=== PATIENT | male | born 1955 | race Two or more races ===

== ENCOUNTER 2025-09-07 16:03 | Inpatient (IN) | payer SELFPAY ==
[~2025-09-07] VITALS: Ht 167.6 cm; Wt 77.4 kg
--- NOTE | 2025-09-07 17:22 | ED.PDOC ---
General HPI Comments 70 y/o M, presents to the ED for CC of testicular pain. Patient states, he has been experiencing right-sided scrotal pain with associated new onset incontinence x1day. Patient reports, to have further associated symptoms of fever, chills, and dysuria. Patient denies experiencing previous symptoms in past. Patient denies hematuria, penile discharge, or back pain. No other symptoms or modifying factors are present at this time. Chief Complaint: Testicle Pain Time Seen by MD: 17:00 Reviewed notes: Nurses Notes, Medications, Allergies Allergies: Coded Allergies: NO KNOWN ALLERGIES (Unverified , 09/07/25) Information Source: Patient Mode of Arrival: Ambulatory Severity: Moderate Timing: Days Duration: Since onset Prehospital treatment: None Onset: Spontaneous Symptoms: Dysuria History of: None Location male: R Scrotum Penile discharge: None Modifying factors: None associated signs and symptoms: Fever, Dysuria Past Medical History PAST MEDICAL HISTORY: Denies Surgical History: Denies all surgeries Family History Family History: Unknown Social History Smoker: Non-Smoker Alcohol: Denies ETOH Use Drugs: Denies Drug Use Lives In: Home Constitutional: reports: chills, fever; denies: diaphoresis, fatigue, malaise, sweats, weakness, others EENTM: denies: blurred vision, double vision, ear bleeding, ear discharge, ear drainage, ear pain, ear ringing, eye pain, eye redness, hearing loss, mouth pain, mouth swelling, nasal discharge, nose bleeding, nose congestion, nose p ain, photophobia, tearing, throat pain, throat swelling, voice changes, others Respiratory: denies: cough, hemoptysis, orthopnea, SOB at rest, shortness of breath, SOB with excertion, stridor, wheezing, others Cardiovascular: denies: chest pain, dizzy spells, diaphoresis, Dyspnea on exertion, edema, irregular heart beat, left arm pain, lightheadedness, palpitations, PND, syncope, others Gastrointestinal: denies: abdomen distended, abdominal pain, blood streaked bowels, constipated, diarrhea, dysphagia, difficulty swallowing, hematemesis, melena, nausea, poor appetite, poor fluid intake, rectal bleeding, rectal pain, vomiting, others Genitourinary: reports: burning, incontinence, testicle pain; denies: dysuria, flank pain, frequency, hematuria, penile discharge, penile sore, pain, testicle swelling, urgency, others Neurological: denies: dizziness, fainting, headache, left sided numbness, left sided weakness, numbness, paresthesia, pre-existing deficit, right sided n umbness, right sided weakness, seizure, speech problems, tingling, tremors, weakness, others Musculoskeletal: denies: back pain, gout, joint pain, joint swelling, muscle pain, muscle stiffness, neck pain, others Integumetry: denies: bruises, change in color, change in hair/nails, dryness, laceration, lesions, lumps, rash, wounds, others Allergic/Immunocompromised: denies: Difficulty Healing, Frequent Infections, Hives, Itching, others Hematologic/Lymphatic: denies: anemia, blood clots, easy bleeding, easy bruising, swollen glands, others Endocrine: denies: excessive hunger, excessive sweating, excessive thirst, excessive urination, flushing, intolerance to cold, intolerance to heat, unexplained weight gain, unexplained weight loss, others Psychiatric: denies: anxiety, bipolar disorder, depression, hopeless, panic disorder, schizophrenia, sleepless, suicidal, others All Other Systems: Reviewed and Negative Physical Exam General Appearance: No Apparent Distress, Normal HEENT: Normal ENT Inspection, Pharynx Normal Neck: Full Range of Motion, Non-Tender, Normal, Normal Inspection Respiratory: Chest Non-Tender, Lungs Clear, No Accessory Muscle Use, No Respiratory Distress, Normal Breath Sounds Cardiovascular: No Edema, No Murmur, No Gallop, Normal Peripheral Pulses, Regular Rate/Rhythm Breast Exam: Deferred Gastrointestinal: No Organomegaly, Non Tender, No Pulsatile Mass, Normal Bowel Sounds, Soft Genitalia: Deferred Pelvic: Deferred Rectal: Deferred Extremities: No calf tenderness, Normal capillary refill, Normal inspection, Normal range of motion, Non-tender, No pedal edema Musculoskeletal : Apperance: Normal Neurologic: Alert, carpenter general II-XII nml as Tested, No Motor Deficits, Normal Affect, Normal Mood, No Sensory Deficits Cerebellar Function: Normal Reflexes: Normal Skin: Dry, Normal Color, Warm Lymphatic: No Adenopathy Was a procedure done? Was a procedure done?: No Differential Diagnosis Kidney stone (Female): N/A Urinary Problem (Male): Urethritis, Urinary Retention, Urolithiasis, UTI X-Ray, Labs, Meds, VS Vital Signs Date Time Temp Pulse Resp B/P (MAP) Pulse Ox O2 Delivery O2 Flow Rate FiO2 09/07/25 16:05 99.2 100 18 117/80 99 99.2 Lab Test 09/07/25 17:50 09/07/25 17:47 Range/Units Urine Color Light-yellow Yellow Urine Clarity Clear Clear Urine pH 5.5 5.0-9.0 Urine Specific [place] 1.011 1.001-1.035 Urine Protein Negative Negative Urine Ketones Negative Negative Urine Blood Trace H Negative /uL Urine Nitrite Negative Negative Urine Bilirubin Negative Negative Urine Urobilinogen Normal Negative mg/dL Urine Leukocyte Esterase 1+ Negative /uL Urine RBC 2 0 - 3 /hpf Urine Microscopic WBC 6 H 0-3 /HPF Urine Squamous Epithelial Cells None seen <5 /hpf Urine Bacteria Few H None Seen /hpf Urine Glucose Normal Normal mg/dL White Blood Count 17.9 H 4.4-10.8 10^3/uL Red Blood Count 5.35 4.5-5.90 10^6/uL Hemoglobin 16.5 13.5-17.5 g/dL Hematocrit 48.0 41.0-53.0 % Mean Corpuscular Volume 89.7 80.0-100.0 fL Mean Corpuscular Hemoglobin 30.9 28.0-32.0 pg Mean Corpuscular Hemoglobin Concent 34.5 32.0-36.0 g/dL Red Cell Distribution Width 12.8 11.8-14.3 % Platelet Count 228 140-450 10^3/uL Mean Platelet Volume 6.9 6.9-10.8 fL Neutrophils (%) (Auto) 84.7 H 37.0-80.0 % Lymphocytes (%) (Auto) 9.3 L 10.0-50.0 % Monocytes (%) (Auto) 5.7 0.0-12.0 % Eosinophils (%) (Auto) 0.2 0.0-7.0 % Basophils (%) (Auto) 0.1 0.0-2.0 % Neutrophils # (Auto) 15.1 H 1.6-8.6 10 ^3/uL Lymphocytes # (Auto) 1.7 0.4-5.4 10 ^3/uL Monocytes # (Auto) 1.0 0-1.3 10 ^3/uL Eosinophils # (Auto) 0 0-0.8 10 ^3/uL Basophils # (Auto) 0 0-0.2 10 ^3/uL Nucleated Red Blood Cells 0.1 % Sodium Level 137 136-145 mmol/L Potassium Level 3.9 3.5-5.1 mmol/L Chloride Level 97 L 98-107 mmol/L Carbon Dioxide Level 28 20-31 mmol/L Anion Gap 12 5-15 Blood Urea Nitrogen 11 9-23 mg/dL Creatinine 1.03 0.700-1.30 mg/dL Glomerular Filtration Rate Calc 77 >90 mL/min BUN/Creatinine Ratio 10.7 10.0-20.0 Serum Glucose 100 74-106 mg/dL Lactic Acid Level 1.5 0.4-2.0 mmol/L Calcium Level 10.0 8.7-10.4 mg/dL Time of 1ST Reevaluation: 17:30 Reevaluation 1ST: Unchanged Patient Education/Counseling: Diagnosis, Treatment Family Education/Counseling: Diagnosis, Treatment SEPSIS Sepsis Screen Date sepsis recognized/suspect: Sep 07, 2025 Time Sepsis recognized/suspect: 160 Recent Procedure: No Respiratory Rate >20: No Heart Rate >90: Yes Temp<36 C (96.8 F) or >38.3 C: No SBP <90 or MAP <65 mmHG: No New Acute Mental Status Change: No Is the patient on CPAP, BIPAP,: No Physician Orders Blood Culture (09/07/25 17:35) Urine Bacterial Culture (09/07/25 17:35) Lactated Ringer's (09/07/25 19:15) Vancomycin Once Stat (09/07/25 19:15) Cefepime 2 Gm Once Stat (09/07/25 19:15) Notify Md If Map <65 Or Bp<90 (09/07/25 19:05) If Map<65 Start Vasopressor (09/07/25 19:05) Sepsis Reassesment After Fluid (09/07/25 20:05) Vital Signs Date Time Temp Pulse Resp B/P (MAP) Pulse Ox O2 Delivery O2 Flow Rate FiO2 09/07/25 16:05 99.2 100 18 117/80 99 99.2 Laboratory Tests Test 09/07/25 17:47 Lactic Acid Level 1.5 mmol/L (0.4-2.0) White Blood Count 17.9 10^3/uL (4.4-10.8) H Departure 1 Departure Time of Disposition: 19:07 (Patient with a complicated UTI concerning for possible sepsis. We will admit patient for further workup and expert consultation) Impression: Primary Impression: Suspected sepsis Additional Impression: Complicated UTI (urinary tract infection) Disposition: 09 ADMITTED INPATIENT Admit to: Tele Condition: Guarded Critical Care Note Critical Care Time?: No Stability Stability form required: No Heart Score Heart Score: Heart Score Response (Comments) Value History N/A 0 EKG N/A 0 Age N/A 0 Risk Factors N/A 0 Troponin N/A 0 Total 0 I personally scribed for ETHAN TRAVIS MD ([email or web address]) on 09/07/25 at 17:22. Electronically submitted by Jessica Amado ([email or web address]). ETHAN TRAVIS MD Sep 07, 2025 17:22
[2025-09-07 18:12] LABS: Hematocrit 48.0 % (41.0-53.0); Hemoglobin 16.5 g/dL (13.5-17.5); Mean Corpuscular Hemoglobin 30.9 pg (28.0-32.0); Mean Corpuscular Volume 89.7 fL (80.0-100.0); Nucleated Red Blood Cells % 0.1 %
[2025-09-07 18:21] LABS: Potassium 3.9 mmol/L (3.5-5.1); Sodium 137 mmol/L (136-145)
[2025-09-07 18:22] LABS: Anion Gap 12 (5-15); Calcium 10.0 mg/dL (8.7-10.4); Carbon Dioxide 28 mmol/L (20-31)
[2025-09-07 18:23] LABS: Urine Protein, UAD Negative (Negative)
[2025-09-07 18:26] LABS: Chloride 97 mmol/L (98-107)
[2025-09-07 18:27] LABS: BUN/Creatinine Ratio 10.7 (10.0-20.0); Blood Urea Nitrogen 11 mg/dL (9-23); Glucose 100 mg/dL (74-106)
[2025-09-07] MEDS ORDERED: CEFEPIME 1GM/50ML 50 ML IV ONE (19:15)
[2025-09-07] MEDS: CEFEPIME 1GM/50ML 50 ML IV ONE (21:13)
[2025-09-07] MEDS: LACTATED RINGER'S 1,900 ML IV ONE (21:21)
[2025-09-07] MEDS: VANCOMYCIN 1GM/250ML KIT 250 ML IV ONE (22:14)
[2025-09-07] MEDS: ACETAMINOPHEN 325 MG TAB PO ONE (22:14)
--- NOTE | 2025-09-08 03:29 | DVHHP2 ---
History of Present Illness Reason for Visit: Testicular pain History of Present Illness 70-year-old male presents for evaluation of testicular pain. Patient presents with a one day history of right testicular tenderness with associated dysuria, urinary incontinence and intermittent chills. Denies abdominal pain, nausea or vomiting. Denies penile discharge. No other acute complaints. Past Medical History Denies Past Surgical History Denies Family History Noncontributory Smoke: No ALCOHOL: none Drugs: None Lives: with Family Review of Systems Review of Systems Review of systems are currently negative otherwise addressed in HPI. Allergies: Coded Allergies: NO KNOWN ALLERGIES (Unverified , 09/07/25) Exam Vital Signs Vital Signs Date Time Temp Pulse Resp B/P (MAP) Pulse Ox O2 Delivery O2 Flow Rate FiO2 09/07/25 23:25 98.5 84 16 105/63 (77) 95 98.5 09/07/25 21:45 Room Air* 0 21 Exam Gen: 70-year-old male in mild distress Skin: Warm, dry, normal color and texture, no rash. HEENT: Normocephalic atraumatic, mucous membranes moist and pink. Neck: Cervical and supraclavicular nodes normal without enlargement, trachea is midline, thyroid gland is normal without masses. Pulmonary: Clear to auscultation and percussion bilaterally. Cardiac: Regular rate and rhythm. No murmur : Right testicular tenderness Abdomen: Soft, nontender, nondistended, bowel sounds present all 4 quadrants, no guarding, no rigidity, no organomegaly. Extremities: No cyanosis, clubbing, no edema Neuro: Cranial nerves II through XII grossly intact, normal affect and speech, no focal motor deficits. Labs/Xrays Labs Test 09/07/25 17:50 09/07/25 17:47 Range/Units Urine Color Light-yellow Yellow Urine Clarity Clear Clear Urine pH 5.5 5.0-9.0 Urine Specific [place] 1.011 1.001-1.035 Urine Protein Negative Negative Urine Ketones Negative Negative Urine Blood Trace H Negative /uL Urine Nitrite Negative Negative Urine Bilirubin Negative Negative Urine Urobilinogen Normal Negative mg/dL Urine Leukocyte Esterase 1+ Negative /uL Urine RBC 2 0 - 3 /hpf Urine Microscopic WBC 6 H 0-3 /HPF Urine Squamous Epithelial Cells None seen <5 /hpf Urine Bacteria Few H None Seen /hpf Urine Glucose Normal Normal mg/dL White Blood Count 17.9 H 4.4-10.8 10^3/uL Red Blood Count 5.35 4.5-5.90 10^6/uL Hemoglobin 16.5 13.5-17.5 g/dL Hematocrit 48.0 41.0-53.0 % Mean Corpuscular Volume 89.7 80.0-100.0 fL Mean Corpuscular Hemoglobin 30.9 28.0-32.0 pg Mean Corpuscular Hemoglobin Concent 34.5 32.0-36.0 g/dL Red Cell Distribution Width 12.8 11.8-14.3 % Platelet Count 228 140-450 10^3/uL Mean Platelet Volume 6.9 6.9-10.8 fL Neutrophils (%) (Auto) 84.7 H 37.0-80.0 % Lymphocytes (%) (Auto) 9.3 L 10.0-50.0 % Monocytes (%) (Auto) 5.7 0.0-12.0 % Eosinophils (%) (Auto) 0.2 0.0-7.0 % Basophils (%) (Auto) 0.1 0.0-2.0 % Neutrophils # (Auto) 15.1 H 1.6-8.6 10 ^3/uL Lymphocytes # (Auto) 1.7 0.4-5.4 10 ^3/uL Monocytes # (Auto) 1.0 0-1.3 10 ^3/uL Eosinophils # (Auto) 0 0-0.8 10 ^3/uL Basophils # (Auto) 0 0-0.2 10 ^3/uL Nucleated Red Blood Cells 0.1 % Sodium Level 137 136-145 mmol/L Potassium Level 3.9 3.5-5.1 mmol/L Chloride Level 97 L 98-107 mmol/L Carbon Dioxide Level 28 20-31 mmol/L Anion Gap 12 5-15 Blood Urea Nitrogen 11 9-23 mg/dL Creatinine 1.03 0.700-1.30 mg/dL Glomerular Filtration Rate Calc 77 >90 mL/min BUN/Creatinine Ratio 10.7 10.0-20.0 Serum Glucose 100 74-106 mg/dL Lactic Acid Level 1.5 0.4-2.0 mmol/L Calcium Level 10.0 8.7-10.4 mg/dL SEPSIS Sepsis Screen Date sepsis recognized/suspect: Sep 07, 2025 Time Sepsis recognized/suspect: 2144 Recent Procedure: No On Antibiotic Therapy: Yes Respiratory Rate >20: No Heart Rate >90: Yes Temp<36 C (96.8 F) or >38.3 C: Yes SBP <90 or MAP <65 mmHG: No New Acute Mental Status Change: No Is the patient on CPAP, BIPAP,: No Physician Orders Ceftriaxone Ivpb Rocephin (09/08/25 09:00) Urine Bacterial Culture (09/08/25 03:24) Testicular Ultrasound (09/08/25 03:24) Ketorolac Injection (Toradol Injection) (09/08/25 03:30) Basic Metabolic Panel (09/08/25 03:24) Complete Blood Count (09/08/25 03:24) Regular Diet (09/08/25 Breakfast) Admit (09/08/25 03:24) Hydrocodone-Acet 5/325mg Tab ([place] 5/32 (09/08/25 03:30) Ondansetron Hcl (Zofran) (09/08/25 03:30) Condition: Stable (09/08/25 03:24) Acetaminophen Tablet (Tylenol Tablet) (09/08/25 03:30) Bedrest With Bathroom Privileg (09/08/25 03:24) Vital Signs Date Time Temp Pulse Resp B/P (MAP) Pulse Ox O2 Delivery O2 Flow Rate FiO2 09/07/25 23:25 98.5 84 16 105/63 (77) 95 98.5 09/07/25 22:56 98.4 09/07/25 22:55 98.4 107 18 137/80 (99) 96 98.4 09/07/25 22:14 101.7 101.7 09/07/25 22:14 101.7 09/07/25 21:45 18 96 Room Air* 0 21 09/07/25 21:45 101.6 98 18 141/89 (106) 96 101.6 09/07/25 19:50 94 18 158/91 (113) 95 Laboratory Tests Test 09/07/25 17:47 Lactic Acid Level 1.5 mmol/L (0.4-2.0) White Blood Count 17.9 10^3/uL (4.4-10.8) H Medications Medications Dose Ordered Sig/Ame Route Start Time Stop Time Status Last Admin Dose Admin Acetaminophen 650 mg ONCE ONCE PO 09/07/25 21:45 09/07/25 21:46 DC 09/07/25 22:14 650 MG Cefepime HCl 50 ml @ 50 mls/hr ONCE ONCE IV 09/07/25 21:00 09/07/25 21:59 DC 09/07/25 21:13 50 MLS/HR Lactated Ringer's 1,900 ml @ 1,900 mls/hr ONCE ONCE IV 09/07/25 19:15 09/07/25 20:14 DC 09/07/25 21:21 1,900 MLS/HR Vancomycin HCl 250 ml @ 250 mls/hr ONCE ONCE IV 09/07/25 19:15 09/07/25 20:14 DC 09/07/25 22:14 250 MLS/HR Assessment/Plan Assessment/Plan Assessment Urinary tract infection Right testicular tenderness Leukocytosis Plan Admit the patient to [facility] to the hospitalist Alysha Pain management Testicular ultrasound pending Continue treatment per orders. Plan discussed with: Patient My Orders Orders - URBANO GORDILLO Procedure Category Date Status Time Ceftriaxone Ivpb PHA 09/08/25 Verified Rocephin 09:00 Urine Bacterial [place] 09/08/25 Verified Culture 03:24 Testicular Ultrasound US 09/08/25 Verified 03:24 Ketorolac Injection PHA 09/08/25 Verified (Toradol Injection) 03:30 Basic Metabolic Panel LAB 09/08/25 Verified 03:24 Complete Blood Count LAB 09/08/25 Verified 03:24 Regular Diet DIET 09/08/25 Verified Breakfast Admit ADMIT 09/08/25 Verified 03:24 Hydrocodone-Acet PHA 09/08/25 Verified 5/325mg Tab ([place] 03:30 Ondansetron Hcl PHA 09/08/25 Verified (Zofran) 03:30 Condition: Stable MATTHEW 09/08/25 Verified 03:24 Acetaminophen Tablet PHA 09/08/25 Verified (Tylenol Tablet) 03:30 Bedrest With Bathroom MATTHEW 09/08/25 Verified Privileg 03:24 Date of Service: Sep 08, 2025 Billing Provider: URBANO GORDILLO Common Visit Codes: [id number] INP/OBS CARE (MOD) URBANO GORDILLO Sep 08, 2025 03:29
[2025-09-08] MEDS ORDERED: ONDANSETRON HCL 4 MG/2 ML VIAL IV PRN (03:30)
[2025-09-08 03:34] VITALS: O2SAT 98
[2025-09-08 03:53] LABS: Hematocrit 41.0 % (41.0-53.0); Hemoglobin 14.1 g/dL (13.5-17.5); Mean Corpuscular Hemoglobin 30.8 pg (28.0-32.0); Mean Corpuscular Volume 89.7 fL (80.0-100.0); Nucleated Red Blood Cells % 0.0 %
[2025-09-08 03:56] LABS: Chloride 100 mmol/L (98-107); Potassium 3.5 mmol/L (3.5-5.1); Sodium 137 mmol/L (136-145)
[2025-09-08 03:57] LABS: Anion Gap 9 (5-15); Calcium 9.0 mg/dL (8.7-10.4); Carbon Dioxide 28 mmol/L (20-31)
[2025-09-08 04:02] LABS: BUN/Creatinine Ratio 18.2 (10.0-20.0); Blood Urea Nitrogen 18 mg/dL (9-23); Glucose 107 mg/dL (74-106)
[2025-09-08] MEDS: KETOROLAC TROMETH 30 MG/ML 1ML VIAL IV ONE (04:23)
[2025-09-08 08:06] VITALS: O2SAT 0
--- NOTE | 2025-09-08 09:21 | DVH ---
US TESTICULAR ULTRASOUND INDICATION: right testicular pain COMPARISON: None TECHNIQUE: High resolution scrotal ultrasound performed with a linear transducer. Grayscale, color flow, and duplex Doppler ultrasound imaging with wave form analysis was performed.Real time albrecht scale, color flow and pulsed wave Doppler performed. FINDINGS: The right testis is 2.9 cm. The left testis is 4.6 cm. Preserved venous waveforms. Suboptimal arterial waveforms likely technical. Hypoechoic area in the right inferior testicle with possible calcification measuring 1.8 x 1.2 cm. Heterogeneous appearance of the left testicle and right epididymis. Small bilateral hydroceles, [id number]. IMPRESSION: Hypoechoic area in the right inferior testicle measuring 1.8 x 1.2 cm with possible calcification. This is nonspecific but underlying mass is possible. Alternatively, this could be from sequela of previous infection / inflammation. No loculated collection is seen. Recommend urology consultation.
[2025-09-08] MEDS: DOXYCYCLINE 100 MG TAB/CAP PO ONE (13:19)
--- NOTE | 2025-09-08 17:10 | DVHPNRES ---
Progress Note Date Seen: Sep 08, 2025 Resident Creating Document: FRITZ HORNER RESIDENT Has the PT tested + for MRSA If YES, has PT been informed?: No Medical Necessity Reason Pt with a Central, PICC or Fol: No Subjective Review of Systems This is a 70-year-old male with past medical history of HTN, GERD came to ER with a complaint of right testicular pain for 2 days which is in nature, intermittent, 8/10 intensity, radiates to the right thigh, no aggravating or relieving factors. Patient having no similar symptoms denies any hematuria. Patient current symptoms associated with dysuria, urinary incontinence and intermittent chills. Patient denies any fever, SOB, chest pain, abdominal pain, any focal weakness. Denies any penile discharge or multiple sexual partners. Past medical history: HTN, GERD Past surgical history: Right-sided hernia repair Family history: Nothing contributory Personal history: Ex-smoker, ETOH occasionally denies illicit drug Allergy: No known allergy PCP: In [place] Objective vital signs Vital Sign Date Time Temp Pulse Resp B/P (MAP) Pulse Ox O2 Delivery O2 Flow Rate FiO2 09/08/25 12:00 86 18 138/80 (99) 96 09/08/25 08:06 Room Air* 0 21 09/08/25 08:00 98.7 98.7 Total Intake and Output 09/07/25 09/07/25 09/08/25 15:00 23:00 07:00 Intake Total 1950 ml 250 ml Balance 1950 ml 250 ml medications Current Medications Medications Dose Ordered Sig/Ame Route Start Time Stop Time Status Last Admin Dose Admin Ceftriaxone Sodium 50 ml @ 100 mls/hr DAILY@09 IV 09/08/25 09:00 09/08/25 09:06 100 MLS/HR Acetaminophen/ Hydrocodone Bitart 1 tab Q4HP PRN PO 09/08/25 03:30 Ondansetron HCl 4 mg Q4HP PRN IV 09/08/25 03:30 Acetaminophen 650 mg Q6HP PRN PO 09/08/25 03:30 Doxycycline Monohydrate 100 mg Q12HR PO 09/08/25 22:00 Examination Gen: 70-year-old male in mild distress Skin: Warm, dry, normal color and texture, no rash. HEENT: Normocephalic atraumatic, mucous membranes moist and pink. Neck: Cervical and supraclavicular nodes normal without enlargement, trachea is midline, thyroid gland is normal without masses. Pulmonary: Clear to auscultation and percussion bilaterally. Cardiac: Regular rate and rhythm. No murmur : Right testicular tender on deep palpation, cremasteric reflex present Abdomen: Soft, nontender, nondistended, bowel sounds present all 4 quadrants, no guarding, no rigidity, no organomegaly. Extremities: No cyanosis, clubbing, no edema Neuro: Cranial nerves II through XII grossly intact, normal affect and speech, no focal motor deficits. laboratory and microbiology Laboratory Tests 09/08/25 03:32 Test 09/08/25 03:32 Range/Units Serum Glucose 107 H 74-106 mg/dL Microbiology Date/Time Source Procedure Growth Status 09/07/25 17:50 Voided Urine Urine Culture - Preliminary Resulted Problem List/Assessment/Plan Problem List/Assessment/Plan Right testicular pain due to epididymitis Ruled out right testicular torsion Right Inferior Testicular mass small bilateral hydrocele SIRS not sepsis Leukocytosis Ultrasound testes: Hypoechoic area in the right inferior testicle measuring 1.8 x 1.2 cm with possible calcification. This is nonspecific but underlying mass is possible. Alternatively, this could be from sequela of previous infection / inflammation. Empiric antibiotic ceftriaxone and doxycycline Urine for GC chlamydia Pain management Repeat ultrasound Monitor labs Complicated cystitis UA showed blood trace, leukocyte esterase 1+, WBC 6, bacteria few Empiric antibiotic ceftriaxone Urine for culture and sensitivity Monitor labs Essential hypertension Monitor blood pressure JANE, NCS, low-fat Diet: Regular DVT prophylaxis heparin GI prophylaxis: Pantoprazole Goals of care discussions. More than 29 minute spent with patient. Full code status Discussed with Dr. Montague Plan discussed with: Patient, Other (NURSE) My Orders My Orders Orders - FRITZ HORNER RESIDENT Procedure Category Date Status Time Doxycycline Tablet PHA 09/08/25 In Process (Vibramycin Tablet) 22:00 Chlamydia/Gc LAB 09/08/25 In Process Amplification 11:48 Sepsis reassessment post fluid Is the fluid challenge complet: Yes Date of Reassessment: Sep 07, 2025 Time of Reassessment: 2254 Blood Culture Time: 1806 Time Antibiotics Given: 2112 Systolic BP: 137 Diastolic BP: 80 Blood Pressure Mean: 99 Respiration: 18 Respiratory Effort: Non-Labored Respiratory Pattern: Regular Oxygen Saturation: 96 Pulse Rate: 107 Pulse Location: Radial Pulse Strength: Normal Pulse Assessment Method: Palpation Pulse Rhythm: Regular Capillary Refill: < 3 seconds Heart Sounds: S1 & S2 Breath sounds: Clear Skin Moisture: Dry Skin Tugor: WNL Skin Color: WNL Date of Service: Sep 08, 2025 Billing Provider: TRE MONTAGUE MD Common Visit Codes: [id number] INP/OBS CARE(HIGH) FRITZ HORNER RESIDENT Sep 08, 2025 17:10 TRE MONTAGUE MD Sep 10, 2025 15:08
[2025-09-08] MEDS: HYDROcodone-ACET 5/325MG TAB PO PRN (19:59)
[2025-09-08 20:05] VITALS: PULSE 108; O2SAT 96
[2025-09-08 21:00] VITALS: BP 118/75; PULSE 104; RESP 19; TEMP 97.8; O2SAT 94
[2025-09-08 21:51] VITALS: PULSE 103; RESP 20; O2SAT 95
[2025-09-08] MEDS: DOXYCYCLINE 100 MG TAB/CAP PO SCH (22:43)
[2025-09-08] MEDS: HEPARIN SODIUM (PORCINE) 5000 UNITS/ML 1ML VIAL SC SCH (22:43)
[2025-09-09] VITALS (7 sets, daily range): BP systolic 113–132; BP diastolic 66–87; PULSE 76–101; RESP 17–19; TEMP 37.5; O2SAT 94–98
[2025-09-09 06:06] LABS: Hematocrit 39.3 % (41.0-53.0); Hemoglobin 13.7 g/dL (13.5-17.5); Mean Corpuscular Hemoglobin 31.3 pg (28.0-32.0); Mean Corpuscular Volume 89.8 fL (80.0-100.0); Nucleated Red Blood Cells % 0.1 %
[2025-09-09 06:17] LABS: Alanine Aminotransferase 20 U/L (7-40); Albumin 3.8 g/dL (3.2-4.8); Alkaline Phosphatase 90 U/L (46-116); Anion Gap 11 (5-15); BUN/Creatinine Ratio 14.9 (10.0-20.0); Bilirubin, Total 1.0 mg/dL (0.2-1.0); Blood Urea Nitrogen 15 mg/dL (9-23); Calcium 9.0 mg/dL (8.7-10.4); Carbon Dioxide 26 mmol/L (20-31); Chloride 102 mmol/L (98-107); Glucose 104 mg/dL (74-106); Potassium 3.8 mmol/L (3.5-5.1); Sodium 139 mmol/L (136-145); Total Protein 6.8 g/dL (5.7-8.2)
[2025-09-09] MEDS: ERGOCALCIFEROL 50,000 UNIT(1.25MG) CAP PO SCH (08:53)
[2025-09-09] MEDS: CYANOCOBALAMIN 500 MCG TAB PO SCH (08:53)
[2025-09-09] MEDS: ENOXAPARIN SOD 40 MG/0.4 ML SYRINGE SC SCH (10:00)
[2025-09-09] MEDS: ACETAMINOPHEN 325 MG TAB PO PRN (13:37)
[2025-09-09 16:07] LABS: Chlamydia Trachomatis, NAA Negative (Negative); Neisseria gonorrhoeae, NAA Negative (Negative)
--- NOTE | 2025-09-09 16:22 | DVHPNRES ---
Progress Note Date Seen: Sep 09, 2025 Resident Creating Document: FRITZ HORNER RESIDENT Has the PT tested + for MRSA If YES, has PT been informed?: No Medical Necessity Reason Pt with a Central, PICC or Fol: No Subjective Review of Systems This is a 70-year-old male with past medical history of HTN, GERD came to ER with a complaint of right testicular pain for 2 days which is in nature, intermittent, 8/10 intensity, radiates to the right thigh, no aggravating or relieving factors. Patient having no similar symptoms denies any hematuria. Patient current symptoms associated with dysuria, urinary incontinence and intermittent chills. Patient denies any fever, SOB, chest pain, abdominal pain, any focal weakness. Denies any penile discharge or multiple sexual partners. Past medical history: HTN, GERD Past surgical history: Right-sided hernia repair Family history: Nothing contributory Personal history: Ex-smoker, ETOH occasionally denies illicit drug Allergy: No known allergy PCP: not selected. Objective vital signs Vital Sign Date Time Temp Pulse Resp B/P (MAP) Pulse Ox O2 Delivery O2 Flow Rate FiO2 09/09/25 13:37 99.7 09/09/25 09:00 86 17 132/85 (101) 94 09/09/25 08:00 Room Air* 0 21 Total Intake and Output 09/08/25 09/08/25 09/09/25 15:00 23:00 07:00 Intake Total 50 ml 200 ml Balance 50 ml 200 ml medications Current Medications Medications Dose Ordered Sig/Ame Route Start Time Stop Time Status Last Admin Dose Admin Acetaminophen/ Hydrocodone Bitart 1 tab Q4HP PRN PO 09/08/25 03:30 09/09/25 08:54 1 TAB Ondansetron HCl 4 mg Q4HP PRN IV 09/08/25 03:30 Acetaminophen 650 mg Q6HP PRN PO 09/08/25 03:30 09/09/25 13:37 650 MG Doxycycline Monohydrate 100 mg Q12HR PO 09/08/25 22:00 09/09/25 08:53 100 MG Ergocalciferol 50,000 unit Q7D PO 09/09/25 06:30 09/09/25 08:53 50,000 UNIT Cyanocobalamin 1,000 mcg DAILY PO 09/09/25 10:00 09/09/25 08:53 1,000 MCG Enoxaparin Sodium 40 mg DAILY SC 09/09/25 10:00 Levofloxacin/ Dextrose 150 ml @ 100 mls/hr DAILY IV 09/09/25 10:00 09/09/25 13:37 100 MLS/HR Examination Gen: 70-year-old male in mild distress Skin: Warm, dry, normal color and texture, no rash. HEENT: Normocephalic atraumatic, mucous membranes moist and pink. Neck: Cervical and supraclavicular nodes normal without enlargement, trachea is midline, thyroid gland is normal without masses. Pulmonary: Clear to auscultation and percussion bilaterally. Cardiac: Regular rate and rhythm. No murmur : Right testicular tender on deep palpation, cremasteric reflex present Abdomen: Soft, nontender, nondistended, bowel sounds present all 4 quadrants Extremities: No cyanosis, clubbing, no edema Neuro: Cranial nerves II through XII grossly intact, normal affect and speech, no focal motor deficits. laboratory and microbiology Laboratory Tests 09/09/25 05:20 Test 09/09/25 05:20 Range/Units Serum Glucose 104 74-106 mg/dL Microbiology Date/Time Source Procedure Growth Status 09/07/25 17:52 Blood Blood Culture - Preliminary NO GROWTH AFTER 24 HOURS OF INCUBATION. 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 This is nonspecific but underlying mass is possible. Alternatively, this could be from sequela of previous infection / inflammation. Started antibiotic levofloxacin which is sensitive to E coli after culture and sensitivity Urine for GC chlamydia-negative Pain management Repeat ultrasound Monitor labs Complicated cystitis UA showed blood trace, leukocyte esterase 1+, WBC 6, bacteria few Urine culture showed growth E coli Ceftriaxone switched to levofloxacin Monitor labs Vitamin-D deficiency Vitamin D3 84554 units po Q weekly Essential hypertension Monitor blood pressure JANE, NCS, low-fat Diet: Regular DVT prophylaxis : Lovenox GI prophylaxis: Pantoprazole Goals of care discussions. More than 21 minute spent with patient. Full code status Discussed with Dr. Codey Plan discussed with: Patient, Other (Nurse) My Orders My Orders Orders - FRITZ HORNER Procedure Category Date Status Time Ergocalciferol PHA 09/09/25 In Process (Vitamin D 50,000 06:30 Cyanocobalamin PHA 09/09/25 In Process (Vitamin B-12) 10:00 Consult Care CONS 09/09/25 Transmitted Coordinator Sepsis reassessment post fluid Is the fluid challenge complet: Yes Date of Reassessment: Sep 07, 2025 Time of Reassessment: 2254 Blood Culture Time: 1806 Time Antibiotics Given: 2112 Systolic BP: 137 Diastolic BP: 80 Blood Pressure Mean: 99 Respiration: 18 Respiratory Effort: Non-Labored Respiratory Pattern: Regular Oxygen Saturation: 96 Pulse Rate: 107 Pulse Location: Radial Pulse Strength: Normal Pulse Assessment Method: Palpation Pulse Rhythm: Regular Capillary Refill: < 3 seconds Heart Sounds: S1 & S2 Breath sounds: Clear Skin Moisture: Dry Skin Tugor: WNL Skin Color: WNL FRITZ HORNER RESIDENT Sep 09, 2025 16:22
[2025-09-09] MEDS ORDERED: CYAN100056 PO (16:50)
[2025-09-09] MEDS ORDERED: CIPR500T4 PO (16:50)
[2025-09-09] MEDS ORDERED: ERGO1CAP23 PO (16:50)
--- NOTE | 2025-09-09 16:50 | MEDREC ---
DV ASP Intervention Section I DV ASP Intervention: Deescalate AB based on CS (PLEASE CONSIDER D/C DOXYCYCLINE - C.TRACHOMATIS / N.GONNORRHEA NEGATIVE) YA CORONEL PHARMACIST Sep 09, 2025 16:50
--- NOTE | 2025-09-09 17:16 | DVHDSRES ---
Discharge Summary Date of Admission Resident Creating Document: FRITZ HORNER RESIDENT Sep 08, 2025 at 03:24 Date of Discharge: Sep 09, 2025 Labs/Diagnostic Data: Laboratory Results Test 09/09/25 05:20 09/08/25 12:37 09/07/25 17:50 09/07/25 17:47 White Blood Count 12.1 10^3/uL (4.4-10.8) Red Blood Count 4.37 10^6/uL (4.5-5.90) Hemoglobin 13.7 g/dL (13.5-17.5) Hematocrit 39.3 % (41.0-53.0) Mean Corpuscular Volume 89.8 fL (80.0-100.0) Mean Corpuscular Hemoglobin 31.3 pg (28.0-32.0) Mean Corpuscular Hemoglobin Concent 34.9 g/dL (32.0-36.0) Red Cell Distribution Width 12.9 % (11.8-14.3) Platelet Count 187 10^3/uL (140-450) Mean Platelet Volume 7.0 fL (6.9-10.8) Neutrophils (%) (Auto) 79.7 % (37.0-80.0) Lymphocytes (%) (Auto) 10.4 % (10.0-50.0) Monocytes (%) (Auto) 8.8 % (0.0-12.0) Eosinophils (%) (Auto) 1.0 % (0.0-7.0) Basophils (%) (Auto) 0.1 % (0.0-2.0) Neutrophils # (Auto) 9.7 10 ^3/uL (1.6-8.6) Lymphocytes # (Auto) 1.3 10 ^3/uL (0.4-5.4) Monocytes # (Auto) 1.1 10 ^3/uL (0-1.3) Eosinophils # (Auto) 0.1 10 ^3/uL (0-0.8) Basophils # (Auto) 0 10 ^3/uL (0-0.2) Nucleated Red Blood Cells 0.1 % Sodium Level 139 mmol/L (136-145) Potassium Level 3.8 mmol/L (3.5-5.1) Chloride Level 102 mmol/L (98-107) Carbon Dioxide Level 26 mmol/L (20-31) Anion Gap 11 (5-15) Blood Urea Nitrogen 15 mg/dL (9-23) Creatinine 1.01 mg/dL (0.700-1.30) Glomerular Filtration Rate Calc 79 mL/min (>90) BUN/Creatinine Ratio 14.9 (10.0-20.0) Serum Glucose 104 mg/dL (74-106) Hemoglobin A1c 5.3 % A1C (<5.7) Calcium Level 9.0 mg/dL (8.7-10.4) Total Bilirubin 1.0 mg/dL (0.2-1.0) Aspartate Amino Transferase (AST) 25 U/L (13-40) Alanine Aminotransferase (ALT) 20 U/L (7-40) Alkaline Phosphatase 90 U/L (46-116) Total Protein 6.8 g/dL (5.7-8.2) Albumin 3.8 g/dL (3.2-4.8) Vitamin B12 Level 233 pg/mL (211-911) Vitamin D 25-Hydroxy 20.3 ng/mL (30.0-100) Thyroid Stimulating Hormone (TSH) 3.26 uIU/mL (0.55-4.78) Chlamydia trachomatis (FELECIA) Negative (Negative) Neisseria gonorrhoeae (FELECIA) Negative (Negative) Urine Color Light-yellow (Yellow) Urine Clarity Clear (Clear) Urine pH 5.5 (5.0-9.0) Urine Specific [place] 1.011 (1.001-1.035) Urine Protein Negative (Negative) Urine Ketones Negative (Negative) Urine Blood Trace /uL (Negative) Urine Nitrite Negative (Negative) Urine Bilirubin Negative (Negative) Urine Urobilinogen Normal mg/dL (Negative) Urine Leukocyte Esterase 1+ /uL (Negative) Urine RBC 2 /hpf (0 - 3) Urine Microscopic WBC 6 /HPF (0-3) Urine Squamous Epithelial Cells None seen /hpf (<5) Urine Bacteria Few /hpf (None Seen) Urine Glucose Normal mg/dL (Normal) Lactic Acid Level 1.5 mmol/L (0.4-2.0) Other Laboratory Tests 09/09/25 05:20 Brief Hx & Hospital Course: This is a 70-year-old male with past medical history of HTN, GERD came to ER with a complaint of right testicular pain for 2 days which is in nature, intermittent, 8/10 intensity, radiates to the right thigh, no aggravating or relieving factors. Patient having no similar symptoms denies any hematuria. Patient current symptoms associated with dysuria, urinary incontinence and intermittent chills. Patient denies any fever, SOB, chest pain, abdominal pain, any focal weakness. Denies any penile discharge or multiple sexual partners. Past medical history: HTN, GERD Past surgical history: Right-sided hernia repair Family history: Nothing contributory Personal history: Ex-smoker, ETOH occasionally denies illicit drug Allergy: No known allergy PCP: not selected. Hospital course: Patient admitted right testicular pain due to epididymitis and complicated cystitis. Ultrasound testes: Hypoechoic area in the right inferior testicle measuring 1.8 x 1.2 cm with possible calcification. This is nonspecific but underlying mass is possible. Alternatively, this could be from sequela of previous infection / inflammation. Urine culture and sensitivities and and growth of E coli which is sensitive to fluoroquinolone. Urine GC chlamydia- negative. Patient symptoms significantly improved with conservative treatment. During evaluation on 09/09/2025, patient denies any fever, SOB, chest pain, abdominal pain, dysuria or any focal weakness. Patient is hemodynamically stable for discharge. Patient has received maximum benefit from inpatient treatment. Time was given to answer patient's questions and concerns in layman terms and explained by RN. Patient verbalized understanding and agreed with treatment and follow-up. Patient was recommended to return to ER if he experiences any worsening symptoms not limited to current symptoms. Follow-up with PCP and outpatient clinic [facility] morning. Medications sent to pharmacy. Physical examination: Gen: Patient not in any distress Skin: Warm, dry, normal color and texture, no rash. HEENT: Normocephalic atraumatic, mucous membranes moist and pink. Neck: Cervical and supraclavicular nodes normal without enlargement, trachea is midline, thyroid gland is normal without masses. Pulmonary: Clear to auscultation and percussion bilaterally. Cardiac: Regular rate and rhythm. No murmur Abdomen: Soft, nontender, nondistended, bowel sounds present all 4 quadrants Extremities: No cyanosis, clubbing, no edema Neuro: Cranial nerves II through XII grossly intact, normal affect and speech, no focal motor deficits. Case discussed with patient, , nurse and Dr. Loaiza. 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 Outpatient urology within 4-6 weeks after discharge. Scheduled Ciprofloxacin Hcl (Ciprofloxacin Hcl), 1 TAB PO BID Cyanocobalamin (B-12), 1,000 MCG PO DAILY Ergocalciferol (Vitamin D 89105 Unit), 50,000 UNIT PO weekly Discharge Statement: "Patient was advised to return to the ER or call 911 if any headaches, dizziness, shortness of breath, chest pain, abdominal pain, bleeding, fevers, or worsening of medical condition. Patient was counseled about treatment plan, medications, possible side effects, patientverbalized understanding. All questions were answered to the best of my ability. This discharge took greater then 30 minutes in planning, reviewing documentation, counseling the patient, and discussing with other team members." ASSESSMENT ASSESSMENT Assessment Visit Coding STANDARD RES Billing Provider: TRE MONTAGUE MD Date of Service if different f: Sep 09, 2025 Common Visit Codes: 40195-ESUIWAG INP/OBS CARE (HIGH), 14189-QER/OBS DISCH DAY >30min Secondary Visit Codes: 98523-[id number] CARE PLAN 30 MINUTES FRITZ HORNER Sep 09, 2025 17:16 TRE MONTAGUE MD Sep 10, 2025 15:25
--- NOTE | 2025-09-09 17:59 | DVHINCON2 ---
Date of service: Sep 09, 2025 Referring Physician Hospitalist Reason for Consultation Right orchalgia UTI, E. Coli History of Present Illness 70 y/o M, presents to the ED for CC of testicular pain. Patient states, he has been experiencing right-sided scrotal pain with associated new onset incon tinence x1day. Patient reports, to have further associated symptoms of fever, chills, and dysuria. Patient denies experiencing previous symptoms in past. Patient denies hematuria, penile discharge, or back pain. No other symptoms or modifying factors are present at this time. Chief Complaint: Testicle Pain Patient's WBC count is decreasing back to normal and urine culture shows E coli. Past Medical History Denies Allergies: Coded Allergies: NO KNOWN ALLERGIES (Unverified , 09/07/25) Home Meds Active Scripts Cyanocobalamin (B-12) 1,000 Mcg Cap, 1000 MCG PO DAILY for 30 Days, #30 CAP [facility]/09[facility]25 Ergocalciferol (VITAMIN D 83780 UNIT) 50,000 [place], [address] UNIT PO weekly for 10 Days, #10 CAP Prov[facility] 09/09/25 Ciprofloxacin Hcl (Ciprofloxacin Hcl) 500 Mg Tab, 1 TAB PO BID for 14 Days, #28 TAB [facility] 09/09/25 Current Medications Current Medications Medications (Trade) Dose Ordered Sig/Ame Route PRN Reason Start Time Stop Time Status Last Admin Doxycycline Monohydrate (Vibramycin Tablet) 100 mg Q12HR PO 09/08/25 22:00 09/09/25 08:53 Heparin Sodium (Porcine) 5,000 units Q12HR SC 09/08/25 22:00 09/09/25 09:27 DC 09/09/25 08:55 Ergocalciferol (Vitamin D 50,000 Unit) 50,000 unit Q7D PO 09/09/25 06:30 09/09/25 08:53 Cyanocobalamin (Vitamin B-12) 1,000 mcg DAILY PO 09/09/25 10:00 09/09/25 08:53 Enoxaparin Sodium (Lovenox) 40 mg DAILY SC 09/09/25 10:00 Levofloxacin/ Dextrose 150 ml @ 100 mls/hr DAILY IV 09/09/25 10:00 09/09/25 13:37 Review of Systems Constitutional: reports: chills, fever; denies: diaphoresis, fatigue, malaise, sweats, weakness, others EENTM: denies: blurred vision, double vision, ear bleeding, ear discharge, ear drainage, ear pain, ear ringing, eye pain, eye redness, hearing loss, mouth pain, mouth swelling, nasal discharge, nose bleeding, nose congestion, nose pain, photophobia, tearing, throat pain, throat swelling, voice changes, others Respiratory: denies: cough, hemoptysis, orthopnea, SOB at rest, shortness of breath, SOB with excertion, stridor, wheezing, others Cardiovascular: denies: chest pain, dizzy spells, diaphoresis, Dyspnea on exertion, edema, irregular heart beat, left arm pain, lightheadedness, palpitat ions, PND, syncope, others Gastrointestinal: denies: abdomen distended, abdominal pain, blood streaked bow els, constipated, diarrhea, dysphagia, difficulty swallowing, hematemesis, melena, nausea, poor appetite, poor fluid intake, rectal bleeding, rectal pain, vomiting, others Genitourinary: reports: burning, incontinence, testicle pain; denies: dysuria, flank pain, frequency, hematuria, penile discharge, penile sore, pain, testicle swelling, urgency, others Neurological: denies: dizziness, fainting, headache, left sided numbness, left sided weakness, numbness, paresthesia, pre-existing deficit, right sided numbness, right sided weakness, seizure, speech problems, tingling, tremors, weakness, others Musculoskeletal: denies: back pain, gout, joint pain, joint swelling, muscle pain, muscle stiffness, neck pain, others Integumetry: denies: bruises, change in color, change in hair/nails, dryness, laceration, lesions, lumps, rash, wounds, others Allergic/Immunocompromised: denies: Difficulty Healing, Frequent Infections, Hives, Itching, others Hematologic/Lymphatic: denies: anemia, blood clots, easy bleeding, easy bruising, swollen glands, others Endocrine: denies: excessive hunger, excessive sweating, excessive thirst, excessive urination, flushing, intolerance to cold, intolerance to heat, unexplained weight gain, unexplained weight loss, others Psychiatric: denies: anxiety, bipolar disorder, depression, hopeless, panic disorder, schizophrenia, sleepless, suicidal, others All Other Systems: Reviewed and Negative Vital Signs Vital Signs Date Time Temp Pulse Resp B/P (MAP) Pulse Ox O2 Delivery O2 Flow Rate FiO2 09/09/25 17:43 37.5 76 18 98 09/09/25 17:00 116/87 (97) 09/09/25 08:00 Room Air* 0 21 Physical Exam General Appearance: No Apparent Distress, Normal HEENT: Normal ENT Inspection, Pharynx Normal Neck: Full Range of Motion, Non-Tender, Normal, Normal Inspection Respiratory: Chest Non-Tender, Lungs Clear, No Accessory Muscle Use, No Respiratory Distress, Normal Breath Sounds Cardiovascular: No Edema, No Murmur, No Gallop, Normal Peripheral Pulses, Regular Rate/Rhythm Breast Exam: Deferred Gastrointestinal: No Organomegaly, Non Tender, No Pulsatile Mass, Normal Bowel Sounds, Soft Genitalia: Right orchalgia Extremities: No calf tenderness, Normal capillary refill, Normal inspection, Normal range of motion, Non-tender, No pedal edema Musculoskeletal : Apperance: Normal Neurologic: Alert, appliance tester II-XII nml as Tested, No Motor Deficits, Normal Affect, Normal Mood, No Sensory Deficits Cerebellar Function: Normal Reflexes: Normal Skin: Dry, Normal Color, Warm Lymphatic: No Adenopathy Labs/Diagnostic Data Labs Test 09/09/25 05:20 09/08/25 12:37 09/07/25 17:50 09/07/25 17:47 Range/Units White Blood Count 12.1 H 4.4-10.8 10^3/uL Red Blood Count 4.37 L 4.5-5.90 10^6/uL Hemoglobin 13.7 13.5-17.5 g/dL Hematocrit 39.3 L 41.0-53.0 % Mean Corpuscular Volume 89.8 80.0-100.0 fL Mean Corpuscular Hemoglobin 31.3 28.0-32.0 pg Mean Corpuscular Hemoglobin Concent 34.9 32.0-36.0 g/dL Red Cell Distribution Width 12.9 11.8-14.3 % Platelet Count 187 140-450 10^3/uL Mean Platelet Volume 7.0 6.9-10.8 fL Neutrophils (%) (Auto) 79.7 37.0-80.0 % Lymphocytes (%) (Auto) 10.4 10.0-50.0 % Monocytes (%) (Auto) 8.8 0.0-12.0 % Eosinophils (%) (Auto) 1.0 0.0-7.0 % Basophils (%) (Auto) 0.1 0.0-2.0 % Neutrophils # (Auto) 9.7 H 1.6-8.6 10 ^3/uL Lymphocytes # (Auto) 1.3 0.4-5.4 10 ^3/uL Monocytes # (Auto) 1.1 0-1.3 10 ^3/uL Eosinophils # (Auto) 0.1 0-0.8 10 ^3/uL Basophils # (Auto) 0 0-0.2 10 ^3/uL Nucleated Red Blood Cells 0.1 % Sodium Level 139 136-145 mmol/L Potassium Level 3.8 3.5-5.1 mmol/L Chloride Level 102 98-107 mmol/L Carbon Dioxide Level 26 20-31 mmol/L Anion Gap 11 5-15 Blood Urea Nitrogen 15 9-23 mg/dL Creatinine 1.01 0.700-1.30 mg/dL Glomerular Filtration Rate Calc 79 >90 mL/min BUN/Creatinine Ratio 14.9 10.0-20.0 Serum Glucose 104 74-106 mg/dL Hemoglobin A1c 5.3 <5.7 % A1C Calcium Level 9.0 8.7-10.4 mg/dL Total Bilirubin 1.0 0.2-1.0 mg/dL Aspartate Amino Transferase (AST) 25 13-40 U/L Alanine Aminotransferase (ALT) 20 7-40 U/L Alkaline Phosphatase 90 46-116 U/L Total Protein 6.8 5.7-8.2 g/dL Albumin 3.8 3.2-4.8 g/dL Vitamin B12 Level 233 211-911 pg/mL Vitamin D 25-Hydroxy 20.3 L 30.0-100 ng/mL Thyroid Stimulating Hormone (TSH) 3.26 0.55-4.78 uIU/mL Chlamydia trachomatis (FELECIA) Negative Negative Neisseria gonorrhoeae (FELECIA) Negative Negative Urine Color Light-yellow Yellow Urine Clarity Clear Clear Urine pH 5.5 5.0-9.0 Urine Specific [place] 1.011 1.001-1.035 Urine Protein Negative Negative Urine Ketones Negative Negative Urine Blood Trace H Negative /uL Urine Nitrite Negative Negative Urine Bilirubin Negative Negative Urine Urobilinogen Normal Negative mg/dL Urine Leukocyte Esterase 1+ Negative /uL Urine RBC 2 0 - 3 /hpf Urine Microscopic WBC 6 H 0-3 /HPF Urine Squamous Epithelial Cells None seen <5 /hpf Urine Bacteria Few H None Seen /hpf Urine Glucose Normal Normal mg/dL Lactic Acid Level 1.5 0.4-2.0 mmol/L Microbiology Date/Time Source Procedure Growth Status 09/07/25 17:52 Blood Blood Culture - Preliminary NO GROWTH AFTER 24 HOURS OF INCUBATION. Resulted 09/07/25 17:50 Voided Urine Urine Culture - Final Escherichia coli Complete Assessment Right orchalgia UTI Microhematuria Plan/Recommendation CT Scan AP NC Scrotal support Patient has been discharged. Plan discussed with: Other MONISHA BEAUCHAMP MD Sep 09, 2025 17:59
== END 2025-09-09 18:18 | disposition home or self-care (01) | DRG 728 ==
LOC: ER 16:03 → OVERFLOW 09-08 03:24 → EAST 09-08 21:50
PROVIDERS: ADMIT Student in an Organized Health Care Education/Training Program; ATTEND Student in an Organized Health Care Education/Training Program
DX: N45.1 Epididymitis (principal); N30.91 Cystitis, unspecified with hematuria; R65.10 Systemic inflammatory response syndrome (SIRS) of non-infectious origin without acute organ dysfunction; B96.20 Unspecified Escherichia coli [E. coli] as the cause of diseases classified elsewhere; I10 Essential (primary) hypertension; N43.3 Hydrocele, unspecified; R31.29 Other microscopic hematuria; N50.9 Disorder of male genital organs, unspecified; K21.9 Gastro-esophageal reflux disease without esophagitis; Z79.899 Other long term (current) drug therapy
CPT/HCPCS: 36415; 76870; 80048; 80053; 81001; 82306; 82607; 83036; 83605; 84443; 85025; 87040; 87086; 87088; 87186; 96365; 96367; G0378; J1885; J1956